=== PATIENT | female | born 1995 | race Caucasian/White ===

== ENCOUNTER → 2024-06-22 20:37 | Outpatient (REF) | payer BC, SELFPAY | LOC: MRI 3T 20:37 | PROVIDERS: ATTENDING PHYSICIAN Nurse Practitioner | DX: M54.2 Cervicalgia (principal) | CPT/HCPCS: 72141 ==

== ENCOUNTER → 2025-04-25 07:32 | Outpatient (REF) | payer BC, SELFPAY | LOC: HWRAD 07:32 | PROVIDERS: ATTENDING PHYSICIAN Nurse Practitioner Family | DX: R10.9 Unspecified abdominal pain (principal) | CPT/HCPCS: 76700 ==

== ENCOUNTER 2025-06-26 07:11 | Emergency (ER) | payer BC, SELFPAY ==
[2025-06-26 07:21] VITALS: BP 127/83
[2025-06-26 07:34] VITALS: BMI 27.8
[2025-06-26] MEDS: NSS 1000 IV (07:46)
--- NOTE | 2025-06-26 07:46 | ED.GENMED ---
History of Present Illness
General
Chief Complaint: Abdominal Pain
Source: patient
Exam Limitations: none
Time Seen by Provider: 06/26/25 07:29
Nursing documentation reviewed up to this point in time: agreed with
History of Present Illness
History of Present Illness:
Patient is a 30-year-old female status post vaginal delivery 3 months ago. She reports she was told she has had gallstones and kidney stones in her past while she was . She was told that she did not need surgery she was seen by urologist
at that time [place]. She reports several days ago, she started with low back pain that radiates to her abdomen. She did take Tylenol for pain which did not relieve her symptoms. She is not sure if this feels like gallstones or kidney stone.
She denies any associated urinary frequency urgency or hematuria. She denies any fever chills nausea vomiting.
Patient is not currently nursing
Past History
Past History
ED Past Medical History: None
ED Past Surgical History: None
Social History
Tobacco: Non-smoker
Alcohol: None
Personal:
Living: with family
Phy Exam
General Physical Exam
General Presentation: no apparent distress
General age: appears stated age
General Skin: warm and dry
General Habitus: normal
General Mental: alert
General Hydration: appears well hydrated
Gastrointestinal Exam
Gastrointestinal Exam: soft and other (mild low non specific tenderness )
Neurological Exam
Neurological Exam: alert
Musculoskeletal Exam
Musculoskeletal Exam: full ROM
Skin Exam
Skin Exam: normal color and warm/dry
Psychiatric Exam
Psychiatric Exam: normal mood/affect
Course
Orders/Labs/Results
Orders:
Orders
06/26/25 07:36
IV Insert/Care/Rem.- Treatment PRN
0.9% Sodium Chloride 1000 ml [Nss] 1,000 ml IV BOLUS
Test Result ONCE
US Abdomen Complete/Upper Urgent
Comment:
Reason For Exam: ruq pain
06/26/25 07:42
Complete Blood Count/With Diff Urgent
Comprehensive Metabolic Panel Urgent
HCG, Serum Qualitative Screen Urgent
Lipase Urgent
06/26/25 07:46
Ketorolac [Toradol] 15 mg IV NOW STA
06/26/25 09:13
CT Abd/pel Without Iv Or Oral Urgent
Comment:
Reason For Exam: back pain radiating to abd hx of stones
06/26/25 09:14
Urinalysis Reflex To Culture Urgent
Date Specimen was Collected: 06/26/25
Time Specimen was Collected: 09:09
Urine Microscopic Reflex Cult Urgent
Abnormal Lab Results
06/26/25 06/26/25
07:42 09:14
Hgb 11.5 L g/dL
(12.0-16.0)
Hct 35.6 L %
(37.0-47.0)
MCH 26.9 L pg
(27.0-31.0)
MCHC 32.3 L g/dL
(33.0-37.0)
RDW 16.9 H %
(11.5-14.5)
BUN 19 H mg/dl
(7-17)
Glucose 101 H mg/dl
(70-99)
ALT 38 H U/L
(0-35)
Ur Occult Blood Reflex 4+ A
(Negative)
Urine RBC 7-10 A /HPF
(0-2)
Urine Bacteria (Reflex) Few A
(Negative)
Urine Albumin (Reflex) 1+ A
(Neg - Trace)
06/26/25 07:42
06/26/25 07:42
Vital Signs
Initial and Last Documented VS:
Initial Vital Signs
Temp Pulse Resp BP Pulse Ox
98.4 F 63 18 127/83 99
06/26/25 07:21 06/26/25 07:21 06/26/25 07:21 06/26/25 07:21 06/26/25 07:21
Last Documented Vital Signs
Temp Pulse Resp BP Pulse Ox
98.4 F 63 18 111/70 98
06/26/25 07:21 06/26/25 07:21 06/26/25 07:21 06/26/25 12:00 06/26/25 11:59
MDM/Problems Addressed
Differential Diagnosis Includes:
Not limited to biliary colic renal colic
MDM/Problems Addressed:
Patient presented with flank pain abdominal pain. CAT scan does show a 7 mm right UPJ stone. She is well-appearing on exam presented awake alert no acute distress and remains comfortable here in the ER. Case discussed with urology will DC with
Flomax and naproxen. Urine does not appear infected. Patient is in no acute distress afebrile with normal white count
*Radiology
Radiology exam reviewed: radiology read reviewed
*Pulse Oximetry
SaO2: 99
Oxygen Mode of Delivery: Room air
Patient hypoxic: no
*Critical Care Note
Total Time (30-74mins, 75-104mins- exclusive of procedures): Not Applicable
ED Attending Note
-
Portions of this chart may have been created with voice recognition software.� Occasional wrong word or��sound alike� substitutions may have occurred due to the inherent limitations of voice recognition software.
Discharge Plan
Departure
Patient Disposition: Home (Routine Discharge)
Date of Disposition: 06/26/25
Time of Disposition: 11:52
Patient with high blood pressure during this ER visit?: No
Condition: Fair
Covid-19: Not Applicable
Discharge Problem:
renal colic
Instructions: Kidney Stones (DC)
Prescriptions:
New
tamsulosin [Flomax] 0.4 mg capsule
0.4 mg PO DAILY Qty: 7 0RF
No Action
escitalopram oxalate [Lexapro] 10 mg Tablet
10 mg PO QHS
Vitamin Tablet
1 tab PO DAILY
Referrals:
Lenard Denny MD [Active, Urology]
Nga Sloan CRNP [Family Provider, Family Practice]
Activity Restrictions/Additional Instructions:
As discussed you have a 7 mm stone which is sitting where the kidney meets the ureter.
Continue to stay well-hydrated. You will be prescribed a medicine called Flomax to take daily for the next 7 days. In addition, you may take naproxen or ibuprofen. Follow-up with urologist in the next several days for reevaluation return if any
worsening of symptoms include increased pain vomiting fever or chills.
Interventions
Interventions:
*Risk Screen - Suicide Last Done: 06/26/25 07:21
*General Assessment Last Done: 06/26/25 07:21
*Neglect/Abuse Screening Last Done: 06/26/25 07:21
*ED- Fall Risk Assessment Last Done: 06/26/25 07:34
*ED COVID-19 Vaccine History Last Done: 06/26/25 07:34
*Nursing Disposition Last Done: 06/26/25 12:03
JF-Awbonf-Dnlwyuqczs Assessment Last Done: 06/26/25 07:34
Discharge Date and Time
Discharge Date/Time: 06/26/25 12:10
Print Language: MALTESE
[2025-06-26] MEDS: TORADOL 15 MG IV (07:49)
[2025-06-26 07:58] LABS: Hematocrit 35.6 % (37.0-47.0); Hemoglobin 11.5 g/dL (12.0-16.0); Mean Corp Hgb Conc. 32.3 g/dL (33.0-37.0); Mean Corpuscular Volume 83.2 fL (81.0-99.0); Nucleated Red Blood Cells % 0 %; Platelet Count 227 10^3/uL (130-400); Red Cell Dist. Width 16.9 % (11.5-14.5)
[2025-06-26 08:10] LABS: HCG, Serum Qualitative Screen Negative
[2025-06-26 08:18] LABS: ALT (SGPT) 38 U/L (0-35); AST (SGOT) 27 U/L (14-36); Albumin 4.4 g/dl (3.5-5.0); Alkaline Phosphatase 63 U/L (38-126); Blood Urea Nitrogen 19 mg/dl (7-17); Calcium 9.4 mg/dl (8.4-10.2); Carbon Dioxide 25 mmol/L (22-30); Chloride 107 mmol/L (98-107); Estimated Creatinine Clearance 93 ml/min; Glucose 101 mg/dl (70-99); Lipase 97 U/L (23-300); Potassium 4.0 mmol/L (3.5-5.1); Sodium 138 mmol/L (135-145); Total Protein 7.3 g/dl (6.3-8.2); eGFR > 60.00
[2025-06-26 09:48] LABS: Urine Character Clear (Clear)
[2025-06-26 10:30] LABS: Urine Squamous Cell 16-20 /LPF (Few)
[2025-06-26 11:00] VITALS: BP 110/69
[2025-06-26 12:00] VITALS: BP 111/70
== END 2025-06-26 12:10 | disposition home or self-care (01) ==
LOC: EMR 07:11
PROVIDERS: Nurse Practitioner; EMERGENCY PHYSICIAN Emergency Medicine; FAMILY PHYSICIAN Nurse Practitioner
DX: N13.2 Hydronephrosis with renal and ureteral calculous obstruction (principal); Z87.442 Personal history of urinary calculi
CPT/HCPCS: 99284; 96374; 96361; 74176; 76700; 80053; 81003; 81015; 83690; 84703; 85025

== ENCOUNTER 2025-07-04 06:12 | Day surgery (SDC) | payer BC, SELFPAY ==
[2025-07-04] VITALS (9 sets, daily range): BP systolic 110–131; BP diastolic 71–90; BMI 27.8
[2025-07-04] MEDS: NORMOSOL-R/PLASMALYTE-A 1000 IV (10:18)
[2025-07-04] MEDS: TRANSDERM-SCOP 1 PATCH TRANSDERM (10:31)
[2025-07-04] MEDS: SUBLIMAZE 25 MCG IV (13:19)
== END 2025-07-04 14:28 | disposition home or self-care (01) ==
LOC: SDS 06:12
PROVIDERS: ATTENDING PHYSICIAN Specialist
DX: N20.0 Calculus of kidney (principal)
CPT/HCPCS: 52356; 74018; 76000; 82365; C2617

== ENCOUNTER → 2025-10-29 09:34 | Outpatient (REF) | payer BC, SELFPAY | LOC: RAD 09:34 | PROVIDERS: ATTENDING PHYSICIAN Nurse Practitioner | DX: M54.2 Cervicalgia (principal) | CPT/HCPCS: 72052 ==